=== PATIENT | male | born 1950 | race Caucasian/White ===

== ENCOUNTER → 2016-06-10 | Outpatient (CLI) | payer BC, MEDICARE ==
[~2016-06-10] VITALS: Ht 180.3 cm; Wt 107.5 kg
[~2016-06-10] MED LIST: ASPIRIN 81M81 MG/TA2 PO; ASPIRIN E.C. 8181 MG PO; DEMADEX10 MG PO; FLECAINIDE ACE150 MG PO; LIPITOR 10MG10 MG PO; PHENOBARBITAL30 MG PO; PHENOBARBITAL32.4 MG PO; PHENOBARBITAL60 MG PO; PHENOBARBITAL64.8 MG PO; PHENTERMINE15 MG PO; PROVENTIL0.09 MG/A1 IH; SIMVASTATIN20 MG PO; SINGULAIR 110 MG/TAB PO; SINGULAIR10 MG PO; TAMBOCOR150 MG PO; TOPROL XL 50MG50 MG PO; TOPROL XL50 MG PO; VENTOLIN0.09 MG; VENTOLIN0.09 MG IH; VITAMIN D1000 IU PO
[2016-06-10 13:46] VITALS: BP 121/67; PULSE 72
[2016-06-10 14:11] VITALS: BP 121/67; PULSE 72
== END ==
LOC: LIGHT 11:20
DX: E78.4 Other hyperlipidemia (principal); I48.2 Chronic atrial fibrillation; E66.09 Other obesity due to excess calories; Z68.33 Body mass index [BMI] 33.0-33.9, adult; G47.33 Obstructive sleep apnea (adult) (pediatric)

== ENCOUNTER → 2016-07-15 | Outpatient (CLI) | payer BC, MEDICARE ==
[~2016-07-15] VITALS: Ht 180.3 cm; Wt 108.6 kg
[2016-07-15 13:49] VITALS: BP 115/75; PULSE 66
[2016-07-15 14:12] VITALS: BP 115/75; PULSE 66
== END ==
LOC: LIGHT 12:10
DX: E78.4 Other hyperlipidemia (principal); G47.33 Obstructive sleep apnea (adult) (pediatric); E66.09 Other obesity due to excess calories; Z68.33 Body mass index [BMI] 33.0-33.9, adult

== ENCOUNTER → 2016-08-19 | Outpatient (CLI) | payer BC, MEDICARE ==
[~2016-08-19] VITALS: Ht 180.3 cm; Wt 106.4 kg
[2016-08-19 13:19] VITALS: BP 127/82; PULSE 81
== END ==
LOC: LIGHT 11:50
DX: E78.4 Other hyperlipidemia (principal); I48.91 Unspecified atrial fibrillation; E66.8 Other obesity; Z68.32 Body mass index [BMI] 32.0-32.9, adult; G47.33 Obstructive sleep apnea (adult) (pediatric)

== ENCOUNTER → 2016-09-23 | Outpatient (CLI) | payer BC, MEDICARE ==
[~2016-09-23] VITALS: Ht 180.3 cm; Wt 108.6 kg
[2016-09-23 09:32] VITALS: BP 119/78; PULSE 69
== END ==
LOC: LIGHT 09:30
DX: E78.5 Hyperlipidemia, unspecified (principal); I48.91 Unspecified atrial fibrillation; E66.9 Obesity, unspecified; Z68.33 Body mass index [BMI] 33.0-33.9, adult; G47.33 Obstructive sleep apnea (adult) (pediatric)

== ENCOUNTER → 2016-11-25 | Outpatient (CLI) | payer BC, MEDICARE ==
[~2016-11-25] VITALS: Ht 180.3 cm; Wt 107.0 kg
[2016-11-25 09:38] VITALS: BP 114/75; PULSE 65
== END ==
LOC: LIGHT 09:30
DX: E78.5 Hyperlipidemia, unspecified (principal); I48.91 Unspecified atrial fibrillation; E66.9 Obesity, unspecified; Z68.32 Body mass index [BMI] 32.0-32.9, adult; Z71.3 Dietary counseling and surveillance; G47.33 Obstructive sleep apnea (adult) (pediatric)

== ENCOUNTER → 2017-01-20 | Outpatient (CLI) | payer BC, MEDICARE ==
[~2017-01-20] VITALS: Ht 180.3 cm; Wt 105.5 kg
[2017-01-20 09:42] VITALS: BP 100/70; PULSE 60
== END ==
LOC: LIGHT 09:15
DX: E78.5 Hyperlipidemia, unspecified (principal); I48.91 Unspecified atrial fibrillation; E66.9 Obesity, unspecified; Z68.32 Body mass index [BMI] 32.0-32.9, adult; Z71.3 Dietary counseling and surveillance; G47.33 Obstructive sleep apnea (adult) (pediatric)

== ENCOUNTER → 2017-03-10 | Outpatient (CLI) | payer BC, MEDICARE ==
[~2017-03-10] VITALS: Ht 180.3 cm; Wt 104.8 kg
[2017-03-10 09:29] VITALS: BP 112/66; PULSE 72
== END ==
LOC: LIGHT 09:18
DX: E78.5 Hyperlipidemia, unspecified (principal); I48.91 Unspecified atrial fibrillation; E66.9 Obesity, unspecified; Z68.32 Body mass index [BMI] 32.0-32.9, adult; Z71.3 Dietary counseling and surveillance; G47.33 Obstructive sleep apnea (adult) (pediatric)

== ENCOUNTER → 2017-04-21 | Outpatient (CLI) | payer BC, MEDICARE ==
[~2017-04-21] VITALS: Ht 180.3 cm; Wt 105.7 kg
[2017-04-21 09:31] VITALS: BP 132/86; PULSE 76
== END ==
LOC: LIGHT 09:16
DX: E78.5 Hyperlipidemia, unspecified (principal); I48.91 Unspecified atrial fibrillation; E66.9 Obesity, unspecified; Z68.32 Body mass index [BMI] 32.0-32.9, adult; Z71.3 Dietary counseling and surveillance; G47.33 Obstructive sleep apnea (adult) (pediatric)

== ENCOUNTER → 2017-06-02 | Outpatient (CLI) | payer BC, MEDICARE ==
[~2017-06-02] VITALS: Ht 180.3 cm; Wt 105.2 kg
[2017-06-02 09:26] VITALS: BP 96/70; PULSE 68
== END ==
LOC: LIGHT 09:14
DX: E78.5 Hyperlipidemia, unspecified (principal); I48.91 Unspecified atrial fibrillation; E66.9 Obesity, unspecified; Z68.32 Body mass index [BMI] 32.0-32.9, adult; Z71.3 Dietary counseling and surveillance; G47.33 Obstructive sleep apnea (adult) (pediatric)
CPT/HCPCS: G0463

== ENCOUNTER → 2017-07-14 | Outpatient (CLI) | payer BC, MEDICARE ==
[~2017-07-14] VITALS: Ht 180.3 cm; Wt 106.8 kg
[2017-07-14 09:34] VITALS: BP 110/64; PULSE 76
== END ==
LOC: LIGHT 08:48
DX: E78.5 Hyperlipidemia, unspecified (principal); I48.91 Unspecified atrial fibrillation; E66.9 Obesity, unspecified; Z68.32 Body mass index [BMI] 32.0-32.9, adult; Z71.3 Dietary counseling and surveillance; G47.33 Obstructive sleep apnea (adult) (pediatric)
CPT/HCPCS: G0463

== ENCOUNTER → 2017-08-25 | Outpatient (CLI) | payer BC, MEDICARE ==
[~2017-08-25] VITALS: Ht 180.3 cm; Wt 106.8 kg
[2017-08-25 09:09] VITALS: BP 110/72; PULSE 64
== END ==
LOC: LIGHT 08:45
DX: E78.5 Hyperlipidemia, unspecified (principal); I48.91 Unspecified atrial fibrillation; E66.9 Obesity, unspecified; Z68.32 Body mass index [BMI] 32.0-32.9, adult; Z71.3 Dietary counseling and surveillance; G47.33 Obstructive sleep apnea (adult) (pediatric)
CPT/HCPCS: G0463

== ENCOUNTER → 2017-10-21 | Outpatient (CLI) | payer BC, MEDICARE ==
[2017-10-21 10:25] LABS: ALBUMIN 4.1 gm/dL (3.5-5.0); BILIRUBIN,TOTAL 0.4 mg/dL (0.0-1.0); CALCIUM 9.2 mg/dL (8.4-10.2); CREATININE, serum 0.78 mg/dL (0.66-1.25); POTASSIUM 4.6 mmol/L (3.4-5.0); TOTAL PROTEIN 7.7 gm/dL (6.4-8.2)
== END ==
LOC: COL.LAB 09:21
PROVIDERS: Registered Nurse
DX: R06.02 Shortness of breath (principal); R06.2 Wheezing; R60.0 Localized edema

== ENCOUNTER → 2017-10-27 | Outpatient (CLI) | payer BC, MEDICARE | LOC: COL.PUL 11:05 | DX: R06.02 Shortness of breath (principal); R06.2 Wheezing; R60.0 Localized edema ==

== ENCOUNTER → 2017-12-01 | Outpatient (CLI) | payer BC, MEDICARE ==
[~2017-12-01] VITALS: Ht 180.3 cm; Wt 104.8 kg
[2017-12-01 09:47] VITALS: BP 112/74; PULSE 72
== END ==
LOC: LIGHT 09:07
DX: E78.5 Hyperlipidemia, unspecified (principal); I48.91 Unspecified atrial fibrillation; E66.9 Obesity, unspecified; Z68.32 Body mass index [BMI] 32.0-32.9, adult; Z71.3 Dietary counseling and surveillance; G47.33 Obstructive sleep apnea (adult) (pediatric)
CPT/HCPCS: G0463

== ENCOUNTER → 2018-01-12 | Outpatient (CLI) | payer BC, MEDICARE ==
[~2018-01-12] VITALS: Ht 182.9 cm; Wt 104.6 kg
[2018-01-12 10:22] VITALS: BP 126/80; PULSE 72
== END ==
LOC: LIGHT 09:50
DX: E78.5 Hyperlipidemia, unspecified (principal); I48.91 Unspecified atrial fibrillation; G47.33 Obstructive sleep apnea (adult) (pediatric); E66.9 Obesity, unspecified; Z68.31 Body mass index [BMI] 31.0-31.9, adult; Z71.3 Dietary counseling and surveillance
CPT/HCPCS: G0463

== ENCOUNTER → 2018-03-02 | Outpatient (CLI) | payer BC, MEDICARE ==
[~2018-03-02] VITALS: Ht 182.9 cm; Wt 103.0 kg
[2018-03-02 09:27] VITALS: BP 116/70; PULSE 62
== END ==
LOC: LIGHT 09:21
DX: E78.5 Hyperlipidemia, unspecified (principal); I48.91 Unspecified atrial fibrillation; G47.33 Obstructive sleep apnea (adult) (pediatric); E66.9 Obesity, unspecified; Z68.30 Body mass index [BMI] 30.0-30.9, adult; Z71.3 Dietary counseling and surveillance
CPT/HCPCS: G0463

== ENCOUNTER → 2018-05-04 | Outpatient (CLI) | payer BC, MEDICARE ==
[~2018-05-04] VITALS: Ht 182.9 cm; Wt 105.0 kg
[2018-05-04 09:22] VITALS: BP 124/76; PULSE 75
== END ==
LOC: LIGHT 09:06
DX: E03.9 Hypothyroidism, unspecified (principal); I48.91 Unspecified atrial fibrillation; G47.33 Obstructive sleep apnea (adult) (pediatric); E66.9 Obesity, unspecified; Z68.31 Body mass index [BMI] 31.0-31.9, adult; Z71.3 Dietary counseling and surveillance
CPT/HCPCS: G0463

== ENCOUNTER → 2018-06-29 | Outpatient (CLI) | payer BC, MEDICARE ==
[~2018-06-29] VITALS: Ht 182.9 cm; Wt 104.6 kg
[~2018-06-29] MED LIST changes: +ELIQUIS 5MG PO
[2018-06-29 09:30] VITALS: BP 116/80; PULSE 64
== END ==
LOC: LIGHT 09:15
DX: E78.5 Hyperlipidemia, unspecified (principal); I48.91 Unspecified atrial fibrillation; G47.33 Obstructive sleep apnea (adult) (pediatric); E66.9 Obesity, unspecified; Z68.31 Body mass index [BMI] 31.0-31.9, adult; Z71.3 Dietary counseling and surveillance
CPT/HCPCS: G0463

== ENCOUNTER → 2018-08-31 | Outpatient (CLI) | payer BC, MEDICARE ==
[~2018-08-31] VITALS: Ht 182.9 cm; Wt 107.5 kg
[2018-08-31 09:16] VITALS: BP 124/60; PULSE 72
== END ==
LOC: LIGHT 09:05
DX: E78.5 Hyperlipidemia, unspecified (principal); I48.91 Unspecified atrial fibrillation; G47.33 Obstructive sleep apnea (adult) (pediatric); E66.9 Obesity, unspecified; Z68.32 Body mass index [BMI] 32.0-32.9, adult; Z71.3 Dietary counseling and surveillance
CPT/HCPCS: G0463

== ENCOUNTER → 2019-09-21 | Outpatient (CLI) | payer BC, MEDICARE | LOC: COL.RAD 11:17 | DX: I82.4Y1 Acute embolism and thrombosis of unspecified deep veins of right proximal lower extremity (principal) | CPT/HCPCS: A9540; A9567 ==

== ENCOUNTER 2020-12-24 09:15 | Day surgery (SDC) | payer BC, MEDICARE ==
[~2020-12-24] VITALS: Ht 182.9 cm; Wt 111.4 kg
[2020-12-24] MEDS ORDERED: 00186-0370-20 IH (09:51)
[2020-12-24] MEDS ORDERED: KEPPRA750 MG PO (09:52)
[2020-12-24] MEDS ORDERED: PRAVACHOL 40MG40 MG PO (09:53)
[2020-12-24 10:18] VITALS: BP 120/72; PULSE 65; TEMP 97.9
[2020-12-24 10:19] LABS: INR 1.1 (0.8-3.0); PROTHROMBIN TIME 12.1 SECONDS (9.7-12.8)
[2020-12-24 10:26] LABS: CREATININE, serum 0.99 (0.66-1.25); POTASSIUM 5.1 mmol/L (3.4-5.0)
[2020-12-24 11:35] VITALS: BP 143/92; PULSE 65
[2020-12-24 12:10] VITALS: BP 138/98; PULSE 62
[2020-12-24 12:25] VITALS: BP 133/92; PULSE 61
[2020-12-24 12:55] VITALS: BP 133/91; PULSE 59
[2020-12-24 13:20] VITALS: BP 127/86; PULSE 59
[2020-12-24] MEDS ORDERED: CEPHALEXIN500 M1 PO (13:31)
== END 2020-12-24 14:15 | disposition home or self-care (01) ==
LOC: COL.CAR 09:15
PROVIDERS: Internal Medicine Cardiovascular Disease
DX: Z45.010 Encounter for checking and testing of cardiac pacemaker pulse generator [battery] (principal); I48.0 Paroxysmal atrial fibrillation; R55 Syncope and collapse; R00.1 Bradycardia, unspecified
CPT/HCPCS: C1785; J0690; J2250; J3010; J7030